=== PATIENT | male | born 1995 | race Hispanic/Latino ===

== ENCOUNTER 2017-08-06 02:39 | Emergency (ER) | payer OTHER ==
[~2017-08-06] VITALS: Ht 170.2 cm; Wt 95.5 kg
[2017-08-06] MEDS ORDERED: THERTAB56 PO (03:07)
--- NOTE | 2017-08-06 04:00 | REPUSA ---
CLINICAL HISTORY: Head trauma. TECHNIQUE: Multiple axial brain CT scan sections were obtained from base to vertex without contrast a dministration. COMMENTS: There is no evidence of skull fracture. The study shows normal configuration of sella turcica. There are no intra or extra-axial collections. There is no mass effect or midline shift. There is no evidence of hematoma formation. No hydrocephal us is present. No abnormal calcifications are noted. No significant abnormalities are seen either in the posterior fossa or supratentorial compartment. Mild chronic mucosal inflammatory changes of the ethmoid air cells. The remaining sinuses and mastoid air cells are patent. IMPRESSION: No evidence of acute intracranial pathology. No intracranial hemorrhage or skull fracture. Thank you for your kind referral of this patient.
[2017-08-06] MEDS ORDERED: DERMABOND TOPICAL SKIN ADHESIVE TOP ONE (04:15)
[2017-08-06 04:37] VITALS: BP 139/75
--- NOTE | 2017-08-06 07:40 | REP ---
Left femur four views : There is no fracture or dislocation. Mineralization and joint spaces are normal. There are no calcifications or foreign bodies. Impression: Negative left femur . Signed by Juan David Dominguez MD 08/06/2017 07:31 A
== END 2017-08-06 04:43 | disposition home or self-care (01) ==
LOC: M ED 02:39
DX: S01.90XA Unspecified open wound of unspecified part of head, initial encounter (principal); V09.9XXA Pedestrian injured in unspecified transport accident, initial encounter; Y92.410 Unspecified street and highway as the place of occurrence of the external cause; Y93.89 Activity, other specified; Y99.9 Unspecified external cause status; Z79.899 Other long term (current) drug therapy